=== PATIENT | female | born 1930 | race Caucasian/White ===

== ENCOUNTER 2017-02-07 16:02 | Emergency (ER) | payer MEDICARE ==
[~2017-02-07] VITALS: Ht 157.4 cm; Wt 45.4 kg
[2017-02-07 17:09] LABS: BILIRUBIN NEGATIVE (NEGATIVE); BLOOD NEGATIVE (NEGATIVE); CLARITY CLEAR (CLEAR); COLOR YELLOW (YELLOW); GLUCOSE NEGATIVE (NEGATIVE); KETONE NEGATIVE (NEGATIVE); LEUKO ESTERASE NEGATIVE (NEGATIVE); NITRITE NEGATIVE (NEGATIVE); PH 5.5 (5.0-9.0); SPECIFIC GRAVITY <= 1.005 (1.005-1.030); UROBILINOGEN 0.2 E.U./dl (0.2-1.0)
[2017-02-07 17:13] LABS: BASO # 0.1 10*3/uL (0.0-0.1); BASO % 0.7 % (0.0-1.0); EOS # 0.3 10*3/uL (0.0-0.4); EOS % 4.5 % (1.0-4.0); HEMATOCRIT 39.8 % (37.0-47.0); LYMPH # 1.4 10*3/uL (1.3-4.4); LYMPH % 20.3 % (27.0-41.0); MEAN CELL VOLUME 94.8 fl (81.0-99.0); MEAN CORPUSCULAR HGB CONC 32.7 g/dl (33.0-37.0); MEAN PLATELET VOLUME 8.9 fl (9.6-12.3); MONO # 0.4 10*3/uL (0.1-1.0); MONO % 6.2 % (3.0-9.0); NEUT # 4.8 10*3/uL (2.3-7.9); NEUT % 68.2 % (47.0-73.0); PLATELET COUNT AUTOMATED 290 10*3/uL (130-400); RED CELL DISTRI WIDTH 13.1 % (0-14.5); WHITE BLOOD COUNT 7.1 10*3/uL (4.8-10.8)
[2017-02-07 17:16] LABS: RBC 0-2 rbc/hpf (0-2); WBC 0-2 wbc/hpf (0-5)
[2017-02-07 17:17] LABS: EPITHELIAL CELLS 0-2
[2017-02-07 17:22] LABS: ACT PARTIAL THROMBO TIME 25.2 SECONDS (20.8-31.5)
[2017-02-07 17:27] LABS: ALBUMIN 3.8 gm/dl (3.1-4.5); ALKALINE PHOSPHATASE 81 U/L (45-117); BUN 17 mg/dl (7-24); CHLORIDE 106 mmol/L (98-107); CREATININE 0.89 mg/dL (0.55-1.02); LIPASE 223 U/L (73-393); MAGNESIUM 2.5 mg/dL (1.5-2.1); POTASSIUM 3.7 mmol/L (3.5-5.1); SGOT/AST 22 IU/L (3-35); SGPT/ALT 16 U/L (12-78); SODIUM 139 mmol/L (136-145); TOTAL PROTEIN 7.9 gm/dL (6.4-8.2)
[2017-02-07 17:30] LABS: TROPONIN I < 0.015 ng/ml (<0.045)
[2017-02-07] MEDS ORDERED: LEVAQUIN250 M1 PO (20:29)
== END 2017-02-07 20:35 | disposition home or self-care (01) ==
LOC: ED 16:02
PROVIDERS: Emergency Medicine
DX: R55 Syncope and collapse (principal); R30.0 Dysuria

== ENCOUNTER 2017-10-04 10:14 | Emergency (ER) | payer MEDICARE ==
[~2017-10-04] VITALS: Wt 62.6 kg
[~2017-10-04 10:14] MED LIST: LEVAQUIN250 M1 PO
[2017-10-04 10:51] LABS: BASO # 0.1 10*3/uL (0.0-0.1); BASO % 0.8 % (0.0-1.0); EOS # 0.4 10*3/uL (0.0-0.4); EOS % 4.9 % (1.0-4.0); HEMATOCRIT 40.9 % (37.0-47.0); HEMOGLOBIN 13.6 g/dl (12.0-16.0); LYMPH # 1.3 10*3/uL (1.3-4.4); LYMPH % 14.6 % (27.0-41.0); MEAN CELL VOLUME 95.8 fl (81.0-99.0); MEAN CORPUSCULAR HGB 31.9 pg (27.0-31.0); MEAN CORPUSCULAR HGB CONC 33.3 g/dl (33.0-37.0); MEAN PLATELET VOLUME 9.7 fl (9.6-12.3); MONO # 0.5 10*3/uL (0.1-1.0); MONO % 5.6 % (3.0-9.0); NEUT # 6.7 10*3/uL (2.3-7.9); NEUT % 73.9 % (47.0-73.0); PLATELET COUNT AUTOMATED 255 10*3/uL (130-400); RED BLOOD COUNT 4.27 10*6/uL (4.10-5.10); RED CELL DISTRI WIDTH 13.2 % (0-14.5)
[2017-10-04 11:05] LABS: ALBUMIN 3.9 gm/dl (3.1-4.5); ALKALINE PHOSPHATASE 90 U/L (45-117); BUN 21 mg/dl (7-24); CHLORIDE 101 mmol/L (98-107); CREATININE 1.04 mg/dL (0.55-1.02); LIPASE 176 U/L (73-393); SGOT/AST 24 IU/L (3-35); SGPT/ALT 19 U/L (12-78); SODIUM 138 mmol/L (136-145); TOTAL PROTEIN 7.8 gm/dL (6.4-8.2)
[2017-10-04 11:12] LABS: BILIRUBIN NEGATIVE (NEGATIVE); BLOOD NEGATIVE (NEGATIVE); CLARITY CLEAR (CLEAR); COLOR YELLOW (YELLOW); GLUCOSE NEGATIVE (NEGATIVE); KETONE NEGATIVE (NEGATIVE); LEUKO ESTERASE NEGATIVE (NEGATIVE); NITRITE NEGATIVE (NEGATIVE); SPECIFIC GRAVITY <= 1.005 (1.005-1.030); UROBILINOGEN 0.2 E.U./dl (0.2-1.0)
[2017-10-04 11:22] LABS: EPITHELIAL CELLS 0-2; RBC 0-2 rbc/hpf (0-2); WBC 0-2 wbc/hpf (0-5)
== END 2017-10-04 14:27 | disposition home or self-care (01) ==
LOC: ED 10:14
PROVIDERS: Nurse Practitioner Family
DX: R35.0 Frequency of micturition (principal); R10.30 Lower abdominal pain, unspecified; R11.0 Nausea

== ENCOUNTER → 2017-11-12 | Outpatient (CLI) | payer MEDICARE ==
[2017-11-12 14:18] LABS: BASO # 0.1 10*3/uL (0.0-0.1); BASO % 0.8 % (0.0-1.0); BILIRUBIN NEGATIVE (NEGATIVE); BLOOD NEGATIVE (NEGATIVE); CLARITY CLEAR (CLEAR); COLOR YELLOW (YELLOW); EOS # 0.6 10*3/uL (0.0-0.4); GLUCOSE NEGATIVE (NEGATIVE); HEMATOCRIT 40.4 % (37.0-47.0); HEMOGLOBIN 13.2 g/dl (12.0-16.0); KETONE NEGATIVE (NEGATIVE); LEUKO ESTERASE NEGATIVE (NEGATIVE); LYMPH # 1.6 10*3/uL (1.3-4.4); LYMPH % 17.7 % (27.0-41.0); MEAN CELL VOLUME 97.1 fl (81.0-99.0); MEAN CORPUSCULAR HGB 31.7 pg (27.0-31.0); MEAN CORPUSCULAR HGB CONC 32.7 g/dl (33.0-37.0); MEAN PLATELET VOLUME 9.1 fl (9.6-12.3); MONO # 0.5 10*3/uL (0.1-1.0); NEUT # 6.5 10*3/uL (2.3-7.9); NEUT % 70.1 % (47.0-73.0); NITRITE NEGATIVE (NEGATIVE); PLATELET COUNT AUTOMATED 265 10*3/uL (130-400); RED BLOOD COUNT 4.16 10*6/uL (4.10-5.10); RED CELL DISTRI WIDTH 13.1 % (0-14.5); SPECIFIC GRAVITY <= 1.005 (1.005-1.030); UROBILINOGEN 0.2 E.U./dl (0.2-1.0); WHITE BLOOD COUNT 9.2 10*3/uL (4.8-10.8)
[2017-11-12 14:25] LABS: BACTERIA TRACE; EPITHELIAL CELLS 0-2; RBC 0-2 rbc/hpf (0-2); WBC 0-2 wbc/hpf (0-5)
[2017-11-12 14:36] LABS: CREATININE 1.08 mg/dL (0.55-1.02); POTASSIUM 4.7 mmol/L (3.5-5.1); TOTAL PROTEIN 7.8 gm/dL (6.4-8.2)
== END | disposition home or self-care (01) ==
LOC: RESCLI 12:57
PROVIDERS: Internal Medicine
DX: Z00.01 Encounter for general adult medical examination with abnormal findings (principal); I12.9 Hypertensive chronic kidney disease with stage 1 through stage 4 chronic kidney disease, or unspecified chronic kidney disease; N18.1 Chronic kidney disease, stage 1; S81.801A Unspecified open wound, right lower leg, initial encounter; S80.829A Blister (nonthermal), unspecified lower leg, initial encounter; E78.5 Hyperlipidemia, unspecified; Z79.899 Other long term (current) drug therapy; X58.XXXA Exposure to other specified factors, initial encounter; Y93.89 Activity, other specified; Y92.89 Other specified places as the place of occurrence of the external cause; Y99.8 Other external cause status; E55.9 Vitamin D deficiency, unspecified

== ENCOUNTER → 2017-11-27 | Outpatient (CLI) | payer MEDICARE | END | disposition home or self-care (01) | LOC: RESCLI 01:38 | DX: I10 Essential (primary) hypertension (principal); E78.5 Hyperlipidemia, unspecified; R60.9 Edema, unspecified ==

== ENCOUNTER → 2017-12-10 | Outpatient (CLI) | payer MEDICARE | END | disposition home or self-care (01) | LOC: CARD 07:30 | DX: I70.213 Atherosclerosis of native arteries of extremities with intermittent claudication, bilateral legs (principal); I05.8 Other rheumatic mitral valve diseases; I10 Essential (primary) hypertension; Z79.899 Other long term (current) drug therapy ==

== ENCOUNTER 2018-10-04 01:55 | Inpatient (IN) | payer MEDICARE ==
[~2018-10-04] VITALS: Ht 162.5 cm; Wt 55.8 kg
[2018-10-04] VITALS (11 sets, daily range): BP systolic 88–152; BP diastolic 54–99
--- NOTE | ~2018-10-04 | EKG ---
[place], [place] ELECTROCARDIOGRAM REPORT NAME: FELI RIVAS UNIT #: [id number] ROOM: 407 DOCTOR: FIORELLA DRAFT REPORT BIRTHDATE: [birth year] [facility] Test Date: 2018-10-04 Test Time: 03:13:56 Pat Name: FELI RIVAS Department: Room: 407 Gender: F Administration Vice President: : 1930 Requested By: MARÍA ELENA DAILY Order Number: [id number] Reading MD: Clare Toussaint Measurements Intervals [place] Rate: 94 P: 63 VA: 234 QRS: 25 QRSD: 89 T: 49 QT: 373 QTc: 467 Interpretive Statements Sinus rhythm Prolonged VA interval Borderline low voltage, extremity leads Compared to ECG 03/20/2018 10:38:33 First degree AV block now present Electronically Signed On 10-04-2018 11:57:45 PDT by Clare Toussaint CM:EKGRPT:ELECTROCARDIOGRAM REPORT [id number] MARÍA ELENA MCKAY DRAFT REPORT MARÍA ELENA DAILY DO
--- NOTE | ~2018-10-04 | CON ---
[place], [place] REPORT OF CONSULTATION [id number] UN[facility] #: [id number] ROOM: 407 DOCTOR: MERCEDES, PHD ENRIQUEZ BIRTHDATE: [birth year] DOS: 10/05/2018 HISTORY OF PRESENT ILLNESS: The patient is an 87-year-old female referred by Hellen Cisneros with concerns for competency evaluation. At the present time, the patient is on the 4th floor at [facility]. She is a and lives alone. She has no children; however, her 2 nieces have been staying with her since April. SOCIAL HISTORY: She does not drink alcohol, smoke cigarettes or use illegal drugs. PAST MEDICAL HISTORY: Acute ischemic stroke, anxiety, depression, hyperlipidemia, and hypertension. MEDICATIONS: Levetiracetam, Lovenox, Ativan, Restoril, Dulcolax, morphine sulfate, [place], Zofran, Tylenol. PHYSICAL EXAMINATION: NEUROLOGIC: The patient was awake, alert and oriented to person, place and time. She can name the president and the past president. Mood was stable. Affect was appropriately wide ranging. She denied suicidal and homicidal ideation, plan, and intent. She could adequately discuss her medical condition and medications she is taking as well as pros and cons for taking them and not taking them. Speech and language were within normal limits conversationally. The patient did not appear to be confused. Process was linear and goal directed. There was no evidence of hallucinations or delusions. I spoke with one of the patient's nieces, who denied concerns for competency issues. In my opinion, the patient is competent to make informed health care decisions. DIAGNOSIS: Unspecified anxiety disorder. PLAN: In my opinion, the patient is competent to make informed health care decisions. Thank you very much for this consult. Kristin Platt, PhD CM:CONSTR:REPORT OF CONSULTATION [id number] 10/05/18 0148 interface
[2018-10-04 03:11] LABS: BASO # 0.1 10*3/uL (0.0-0.1); BASO % 0.8 % (0.0-1.0); EOS # 0.4 10*3/uL (0.0-0.4); EOS % 5.1 % (1.0-4.0); HEMATOCRIT 40.2 % (37.0-47.0); LYMPH # 1.1 10*3/uL (1.3-4.4); LYMPH % 14.4 % (27.0-41.0); MEAN CELL VOLUME 100.5 fl (81.0-99.0); MEAN CORPUSCULAR HGB 32.5 pg (27.0-31.0); MEAN CORPUSCULAR HGB CONC 32.3 g/dl (33.0-37.0); MEAN PLATELET VOLUME 9.1 fl (9.6-12.3); MONO # 0.5 10*3/uL (0.1-1.0); MONO % 6.9 % (3.0-9.0); NEUT # 5.3 10*3/uL (2.3-7.9); NEUT % 72.5 % (47.0-73.0); PLATELET COUNT AUTOMATED 221 10*3/uL (130-400); RED CELL DISTRI WIDTH 13.1 % (0-14.5); WHITE BLOOD COUNT 7.3 10*3/uL (4.8-10.8)
[2018-10-04 03:27] LABS: ALBUMIN 3.1 gm/dl (3.1-4.5); CREATININE 1.21 mg/dL (0.55-1.02); POTASSIUM 3.6 mmol/L (3.5-5.1); TOTAL PROTEIN 6.6 gm/dL (6.4-8.2); TROPONIN I 0.018 ng/ml (<0.045)
[2018-10-05] VITALS: BP 149/68
[2018-10-05 08:00] VITALS: BP 142/85
[2018-10-05 12:00] VITALS: BP 151/66
[2018-11-13] MEDS ORDERED: ASPIRIN CHEWABL81 MG PO (09:31)
[2018-11-13] MEDS ORDERED: CLOPIDOGREL75 MG PO (09:31)
[2018-11-13] MEDS ORDERED: ATORVASTATIN CA40 M1 PO (09:31)
[2018-11-13] MEDS ORDERED: ESCITALOPRAM OX10 MG PO (09:31)
[2018-11-13] MEDS ORDERED: LISINOPRIL10 M1 PO (09:31)
[2018-11-14] MEDS ORDERED: ATIVAN1 MG SL (12:39)
[2018-11-14] MEDS ORDERED: KEPPRA XR750 MG PO (12:39)
== END 2018-10-05 15:13 | disposition left against medical advice (07) | DRG 100 ==
LOC: ED 01:55 → EDHOLD 03:57 → 4E 04:11
PROVIDERS: Emergency Medicine; ADMIT Internal Medicine
DX: R56.9 Unspecified convulsions (principal); N17.0 Acute kidney failure with tubular necrosis; G93.41 Metabolic encephalopathy; E87.2 Acidosis; E44.1 Mild protein-calorie malnutrition; Z66 Do not resuscitate; Z51.5 Encounter for palliative care; E86.0 Dehydration; R00.0 Tachycardia, unspecified; Z53.21 Procedure and treatment not carried out due to patient leaving prior to being seen by health care provider; E78.5 Hyperlipidemia, unspecified; I10 Essential (primary) hypertension; F32.9 Major depressive disorder, single episode, unspecified; F41.9 Anxiety disorder, unspecified; Z86.73 Personal history of transient ischemic attack (TIA), and cerebral infarction without residual deficits; Z68.21 Body mass index [BMI] 21.0-21.9, adult

== ENCOUNTER 2019-01-31 12:36 | Inpatient (IN) | payer MEDICARE ==
[~2019-01-31] VITALS: Ht 160 cm; Wt 53.6 kg
[~2019-01-31 12:36] MED LIST changes: +ASPIRIN CHEWABL81 MG PO; +ATIVAN1 MG SL; +ATORVASTATIN CA40 M1 PO; +CLOPIDOGREL75 MG PO; +ESCITALOPRAM OX10 MG PO; +KEPPRA XR750 MG PO; +LISINOPRIL10 M1 PO
[2019-01-31 12:37] VITALS: BP 132/84
[2019-01-31 13:25] LABS: BASO # 0.1 10*3/uL (0.0-0.1); BASO % 0.6 % (0.0-1.0); EOS # 0.1 10*3/uL (0.0-0.4); EOS % 0.9 % (1.0-4.0); HEMATOCRIT 42.8 % (37.0-47.0); HEMOGLOBIN 14.3 g/dl (12.0-16.0); LYMPH # 0.7 10*3/uL (1.3-4.4); MEAN CELL VOLUME 96.4 fl (81.0-99.0); MEAN CORPUSCULAR HGB 32.2 pg (27.0-31.0); MEAN CORPUSCULAR HGB CONC 33.4 g/dl (33.0-37.0); MEAN PLATELET VOLUME 9.7 fl (9.6-12.3); MONO # 1.1 10*3/uL (0.1-1.0); MONO % 9.1 % (3.0-9.0); NEUT # 10.3 10*3/uL (2.3-7.9); NEUT % 83.1 % (47.0-73.0); PLATELET COUNT AUTOMATED 246 10*3/uL (130-400); RED BLOOD COUNT 4.44 10*6/uL (4.10-5.10); RED CELL DISTRI WIDTH 12.9 % (0-14.5); WHITE BLOOD COUNT 12.4 10*3/uL (4.8-10.8)
[2019-01-31 13:32] LABS: ACT PARTIAL THROMBO TIME 24.8 SECONDS (20.0-32.1)
[2019-01-31 13:34] LABS: BUN 17 mg/dl (7-24); CHLORIDE 102 mmol/L (98-107); CREATININE 1.04 mg/dL (0.55-1.02); SODIUM 137 mmol/L (136-145)
[2019-01-31 13:37] LABS: CPK 940 U/L (26-192)
--- NOTE | 2019-01-31 14:17 | NUR ---
PT ASSISTED TO BEDSIDE COMMODE BUT WAS UNABLE TO PROVIDE URINE SAMPLE AT THIS TIME BACK IN BED CALL LIGHT IN REACH VOICES NO COMPLAINTS
--- NOTE | 2019-01-31 14:26 | NUR ---
pt does not want to be admitted she is alert and oriented dr grimaldo is aware call light in reach neighbor in room at bedside
--- NOTE | 2019-01-31 14:50 | NUR ---
PT HAS AGREED TO BE ADMITTED
[2019-01-31 15:33] VITALS: BP 128/80
[2019-01-31 16:00] VITALS: BP 160/79
--- NOTE | 2019-01-31 16:00 | NUR ---
PT UNSURE OF MEDICATIONS, STATES HER NIECES MANAGE HER MEDICATIONS, STATES SHE SHOULD BE IN LATER TODAY.
--- NOTE | 2019-01-31 16:00 | NUR ---
Time: 1599 A 88 year old FEMALE admitted to 4E under services of EMILY GARCIA DO. Pt. arrived via ambulance from ER. Chief complaint: S/P MULTIPLE FALLS, LACERATION TO FOREHEAD. KIN MANLEY
--- NOTE | 2019-01-31 19:50 | NUR ---
PATIENT ASSISTED INTO BATHROOM AND BACK INTO BED. PT VERY WEAK AND UNABLE TO SUPPORT OWN WEIGHT AT THIS TIME. MAX ASSIST REQUIRED. BEDSIDE COMMODE TO BE PUT AT BEDSIDE ASSIST X3 WAS REQUIRED TO GET PT BACK INTO BED. PT SET UP TO EAT DINNER. NO S/S OF DISTRESS NOTED AT THIS TIME. BED LEFT LOCKED IN LOW POSITION, BED ALARM INTACT, CALL LIGHT IN REACH.
[2019-01-31 20:00] VITALS: BP 145/73
--- NOTE | 2019-01-31 21:59 | NUR ---
SPOKE TO REGARDING PATIENT'S HOME KEPPRA. PT TAKES 750 MG KEPPRA XR DAILY. EXTENDED RELEASE KEPPRA UNAVAILABLE FROM HOUSE PHARMACY. WILL TRY TO GET PATIENT'S HOME MEDICATION BROUGHT IN BY FAMILY IF POSSIBLE. PER PHARMACIST, ORDER KEPPRA ORAL LIQUID 375MG BID IN PLACE OF XR FOR TIME BEING.
[2019-01-31 22:15] LABS: BILIRUBIN NEGATIVE (NEGATIVE); BLOOD NEGATIVE (NEGATIVE); CLARITY SL CLOUDY (CLEAR); COLOR YELLOW (YELLOW); GLUCOSE NEGATIVE (NEGATIVE); KETONE TRACE (NEGATIVE); LEUKO ESTERASE NEGATIVE (NEGATIVE); NITRITE NEGATIVE (NEGATIVE); SPECIFIC GRAVITY 1.015 (1.005-1.030); UROBILINOGEN 0.2 E.U./dl (0.2-1.0)
[2019-01-31 22:21] LABS: BACTERIA TRACE; MUCOUS TRACE; RBC 0-2 rbc/hpf (0-2)
[2019-02-01] VITALS: BP 156/78
--- NOTE | 2019-02-01 07:04 | NUR ---
FELI RIVAS [id number] Please refer to the physician's history and physical for past medical history, comorbid conditions, and allergies. Diagnosis: FOREHEAD LACERATION Ye Score: 13,MODERATE RISK WOUND DESCRIPTIONS: Wound Number: 1 Location of the wound: left forehead Type of wound: lacertation Thickness: Partial Size: 0.1cm x 2.2cm x <0.1cm Tunneling: none Undermining: none Sinus Tract: none Presence of Exudate: none Amount: None Color: Red Odor: None Periwound Skin Appearance: Normal Wound edges: approximated with 2 sutures Pain (associated with wound): none at time of assessment How does patient state this happened? pt unable to state how this happened Wound Number: 2 Location of the wound: left elbow Type of wound: abrasion Thickness: Partial Size: 1.5cm x 2.5cm x 0.1cm Tunneling: none Undermining: none Sinus Tract: none Presence of Exudate: Serous Amount: Light Color: Red, yellow Odor: None Periwound Skin Appearance: Normal Wound edges: approximated Pain (associated with wound): none at time of assessment How does patient state this happened? pt unable to state how this happened Wound Number: 3 Location of the wound: left knee Type of wound: abrasion Thickness: Partial Size: 3.0cm x 2.5cm x 0.1cm Tunneling: none Undermining: none Sinus Tract: none Presence of Exudate: none Amount: Light Color: Red, yellow Odor: None Periwound Skin Appearance: Normal Wound edges: approximated Pain (associated with wound): none at time of assessment How does patient state this happened? pt unable to state how this happened Wound Number: 4 Location of the wound: right knee Type of wound: abrasion Thickness: Partial Size: 2.3cm x 2.1cm x <0.1cm Tunneling: none Undermining: none Sinus Tract: none Presence of Exudate: Serous Amount: Light Color: Red, yellow Odor: None Periwound Skin Appearance: Normal Wound edges: approximated Pain (associated with wound): none at time of assessment How does patient state this happened? pt unable to state how this happened Wound Number: 5 Location of the wound: left middle toe Thickness: Partial Size: 0.6cm x 0.4cm x 0.1cm Tunneling: none Undermining: none Sinus Tract: none Presence of Exudate: Serous Amount: Light Color: Red, yellow Odor: None Periwound Skin Appearance: Normal Wound edges: approximated Pain (associated with wound): none at time of assessment How does patient state this happened? pt unable to state how this happened Wound Number: 6 Entire buttocks is red and blanchable at time of assessment. No open areas noted at time of assessment. No draiange at time of assessment. Wound Number: 7 Location of the wound: left knee cap Type of wound: abrasion Thickness: Partial Size: 2.0cm x 2.0cm x <0.1cm Tunneling: none Undermining: none Sinus Tract: none Presence of Exudate: Serous Amount: Light Color: Red, yellow Odor: None Periwound Skin Appearance: Normal Wound edges: approximated Pain (associated with wound): none at time assessment How does patient state this happened? pt unable to state how this happened Wound Number: 8 Location of the wound: left lateral knee lower Type of wound: abrasion Thickness: Partial Size: 0.6cm x 0.6cm x 0.1cm Tunneling: none Undermining: none Sinus Tract: none Presence of Exudate: Serous Amount: Light Color: Red Odor: None Periwound Skin Appearance: Normal Wound edges: approximated Pain (associated with wound): none at time of assessment How does patient state this happened? pt unable to state how this happened Wound Number: 9 Location of the wound: left 5th toe Type of wound: traumatic Thickness: Partial Size: 0.3cm x 0.3cm x 0.1cm Tunneling: none Undermining: none Sinus Tract: none Presence of Exudate: Serous Amount: Light Color: Red Odor: None Periwound Skin Appearance: Normal Wound edges: approximated Pain (associated with wound): none at time of assessment How does patient state this happened? pt unable to state how this happened Surface the patient is resting on: Isoflex SKIN PREVENTION RECOMMENDATION: 1. Pressure redistribution support surface as appropriate 2. Elevate heels 3. Remove boots/TEDS every shift and reapply 4. Head of bed 30 degrees as tolerated 5. Assess nutrition and hydration 6. Manage moisture 7. Avoid the use of containment devices while in bed 8. Use absorptive products on surfaces limit layers of linens on bed 9. Turn and reposition every 1-2 hours in bed and every 1 hour in chair as tolerated 10. Weight shifts every 15 minutes while up in chair 11. Offloading with pillows or device to keep heels elevated off bed 12. Monitor skin at least every shift 13. Inspect under medical devices twice a day WOUND TREATMENT RECOMMENDATIONS: Wheelchair cushion when oob. Heel raiser pro boots to bilateral feet while in bed. Remove suture from forehead is 7-10 days. Partial thickness guidelines: Cleanse left elbow, left knee, left knee lateral proximal and distal, and right knee with nss and apply sureprep around the wound therahoney to wound bed and cover with optifoam gentle. Cleanse left middle toe and left 5th toe with nss and apply bactroban and cover with bandaid daily and prn for soiling. Cleanse entire buttocks with soap and water and apply hydraguard every shift and prn for soiling.
--- NOTE | 2019-02-01 07:20 | NUR ---
ARRIVED ON SHIFT. INTRODUCED TO PATIENT, BEDSIDE REPORT RECEIVED, NO NEEDS VOICED AT THIS TIME, WHITE BOARD UPDATED.
[2019-02-01 07:40] LABS: BASO # 0.1 10*3/uL (0.0-0.1); BASO % 0.9 % (0.0-1.0); EOS # 0.4 10*3/uL (0.0-0.4); EOS % 4.7 % (1.0-4.0); HEMATOCRIT 40.9 % (37.0-47.0); HEMOGLOBIN 13.4 g/dl (12.0-16.0); LYMPH # 1.2 10*3/uL (1.3-4.4); LYMPH % 13.2 % (27.0-41.0); MEAN CELL VOLUME 97.6 fl (81.0-99.0); MEAN CORPUSCULAR HGB CONC 32.8 g/dl (33.0-37.0); MEAN PLATELET VOLUME 9.4 fl (9.6-12.3); MONO # 0.7 10*3/uL (0.1-1.0); MONO % 7.7 % (3.0-9.0); NEUT # 6.5 10*3/uL (2.3-7.9); NEUT % 73.3 % (47.0-73.0); PLATELET COUNT AUTOMATED 209 10*3/uL (130-400); RED BLOOD COUNT 4.19 10*6/uL (4.10-5.10); RED CELL DISTRI WIDTH 13.1 % (0-14.5); WHITE BLOOD COUNT 8.9 10*3/uL (4.8-10.8)
[2019-02-01 08:00] VITALS: BP 153/75
[2019-02-01 08:05] LABS: ALBUMIN 3.3 gm/dl (3.1-4.5); BUN 15 mg/dl (7-24); CHLORIDE 109 mmol/L (98-107); CPK 719 U/L (26-192); POTASSIUM 3.8 mmol/L (3.5-5.1); SODIUM 141 mmol/L (136-145)
[2019-02-01 08:16] LABS: ALKALINE PHOSPHATASE 75 U/L (45-117); CREATININE 0.83 mg/dL (0.55-1.02); PHOSPHOROUS 2.5 mg/dL (2.5-4.9); SGOT/AST 39 IU/L (3-35); SGPT/ALT 21 U/L (12-78); TOTAL PROTEIN 6.6 gm/dL (6.4-8.2)
--- NOTE | 2019-02-01 08:57 | NUR ---
Dr. Shah notified of wound care recommendations.
[2019-02-01 09:20] LABS: VITAMIN D, 25-HYDROXY 45.3 ng/mL (30-100)
--- NOTE | 2019-02-01 09:23 | NUR ---
PHYSICAL THERAPY Nursing screen received and chart reviewed. Physical therapy order received. Thank you. Janet Graham,PT,DPT
--- NOTE | 2019-02-01 10:22 | NUR ---
CALL PLACED TO PHARMACY. ADVISED THAT PATIENT GETS ASA OTC, THEY ONLY TWO MEDICATIONS FILLED RECENTLY IS TOMEKA, NOTIFIED .
--- NOTE | 2019-02-01 11:25 | NUR ---
Occupational therapy orders received and OT evaluation and POC completed in full on floor four. Patient precautions include fall risk, ww use, IV lines, blind in L eye, impulsivity, and weakness. Per OT eval and POC, OT recommends SNF. If refused, patient would benefit from home health SN, OT, PT, and / supervision. Patient would benefit from OT treatment to maximize independence and safety with ADLs and functional mobility/transfers. Thank you for the referral. Tracy Cruz, OTR/L
--- NOTE | 2019-02-01 11:25 | NUR ---
Occupational therapy orders received and OT evaluation and POC completed in full on floor four. Patient precautions include fall risk, ww use, IV lines, blind in L eye, impulsivity, and generalized weakness with a history of falls. Per OT eval and POC, OT recommends SNF. If refused, home with home health SN, OT, and PT with 24/7 supervision. Patient would benefit from OT treatment to maximize independence in ADLs, functional mobility/transfers, and safety. Thank you for the referral. Tracy Cruz, OTR/L
--- NOTE | 2019-02-01 11:50 | NUR ---
PHYSICAL THERAPY Physical therapy evaluation completed,4E. Full evaluation with full details to follow. Moderate complexity evaluation per chart review and evaluation, [address]. PT to improve gait stability, balance and general safety per POC. Therapy recommending SNF. Thank you. Ivet Coffey, PT, DPT
[2019-02-01 12:30] VITALS: BP 168/86
--- NOTE | 2019-02-01 12:40 | NUR ---
AWARE OF MANUAL BP 168/86.
--- NOTE | 2019-02-01 14:32 | NUR ---
Received snf order, contacted [facility] [place] and faxed referral. [place] and 3 night stay. Waiting on review/acceptance.
[2019-02-01 16:00] VITALS: BP 179/73
--- NOTE | 2019-02-01 16:00 | NUR ---
PT IS CONFUSED AND UNABLE TO UNDERTAND QUESTIONS. ATTEMPTED TO CALL WM WHO IS LISTED NOK. VOICEMAIL DID NOT LIST A NAME SO PT NAME NOT GIVEN BUT ASK HER ABOUT DISCHARG PLANS FOR PT. WILL CONTINUE TO FOLLOW.
--- NOTE | 2019-02-01 16:18 | NUR ---
Patient bp remains elvated BP 170/86, call placed to DR. KENDRICK TO ADVISE OF ELEVATED BP
--- NOTE | 2019-02-01 18:00 | NUR ---
DISCHARGED RECEIVED, CALL PLACED TO ROUTE SALESMAN HIREN, VOICED CONCERNS OVER PATIENT BEING DISCHARGED I WAS UNABLE TO CONTACT ANT FAMILY OR DIRECTOR OF PUBLIC SAFETY, PATIENT IS NON-ABULATORY, BLIND, AND I WAS CONCERNED ABOUT SAFETY SHE CAME IN DUE TO FALL AND BEING ON FLOOR, WITH AMBULANCE CALLED X 2 SHE REFUSED TO COME TO ER AT [facility]. PLACED TO DR. AGUILAR, SPOKE WITH HOSPITALIST DR. HEREDIA, ADVISED THAT PER DR. AGUILAR NOTE THAT SHE WAS TO D/C TODAY WITH HOMEHEALTH TO FOLLOW UP TOMORROW. PATIENT REFUSING PHOTOS OF WOUNDS, JUST WANTS TO GET OUT OF HERE.
--- NOTE | 2019-02-01 18:03 | NUR ---
ATTEMPTED TO CALL PATIENTS NOK, NO ANSWER LEFT VOICEMAIL
--- NOTE | 2019-02-01 19:35 | NUR ---
EMS HERE. PATIENT IS UNABLE TO AMBULATE DUE TO EXTREME WEAKNESS. PT REQUIRES 1-2 ASSIST TO EVEN PIVOT TO BEDSIDE COMMODE. PATIENT ANSWERS ALL QUESTIONS APPROPRIATELY, BUT BIZARRE/REPETITIVE TALK NOTED AT TIMES. PT APPEARS TO BE FORGETFUL. EMS CONCERNED THAT PATIENT LIVES ALONE AND DOES NOT HAVE A COMMERCIAL DRONE PILOT TO BE WITH HER AT HOME. SOCIAL SERVICE WAS CONSULTED DURING STAY FOR POSSIBLE SNF PLACEMENT. PT HAD BEEN REFUSING PLACEMENT ALL DAY. THIS RN AND EMS TALKED WITH PATIENT AND SHE IS AGREEING TO GO TO [place] OR [place]. SPOKE TO REGARDING SITUATION/DISCHARGE/PLAN OF CARE. DISCHARGE ORDERED TO BE CANCELLED. PATIENT IS TO STAY OVERNIGHT. SOCIAL SERVICE TO BE CONSULTED TO WORK ON SNF PLACEMENT.
[2019-02-01 20:00] VITALS: BP 170/77
--- NOTE | 2019-02-01 21:52 | NUR ---
ATTEMPTED TO CALL [facility] L[facility], NEXT OF KIN, TO UPDATE ON PT STAYING HERE AND GOING TO SNF. WENT DIRECTLY TO VOICEMAIL. WILL ATTEMPT TO CALL IN AM.
[2019-02-01 22:20] VITALS: BP 162/78
--- NOTE | 2019-02-01 22:29 | NUR ---
AWARE OF BP 162/78 MANUALLY. DISCUSSED DOSE OF IV HYDRALAZINE THAT WAS NOT GIVEN EARLIER IN THE AFTERNOON. INSTRUCTED TO D/C THIS ORDER AND WILL PUT IN ORDERS NEEDED.
--- NOTE | 2019-02-01 22:39 | NUR ---
IV started left forearm with #20 angiocath after 1 attempt. The IV site was prepped with Chloraprep. Heparin lock attached. Sterile dressing applied. Patient tolerated precedure well. Procedure performed according to [facility] policy & procedure. KADE GILES
--- NOTE | 2019-02-01 22:57 | NUR ---
5 MG IV HYDRALAZINE ADMINISTERED SLOWLY PER ONE TIME ORDER FOR ELEVATED BP. WILL MONITOR EFFECTIVENESS. CALL LIGHT LEFT IN REACH. BED ALARM INTACT. SIDE RAILS UP X3.
[2019-02-02] VITALS: BP 154/63
[2019-02-02 01:00] VITALS: BP 121/72
--- NOTE | 2019-02-02 01:15 | NUR ---
EARLIER MEDICATION EFFECTIVE. BP NOW 121/72. WILL MONITOR. CALL LIGHT IN REACH. BED ALARM INTACT.
--- NOTE | 2019-02-02 03:43 | NUR ---
Upon discharge recommend patient to follow up for wound care in outpatient setting continue current wound care orders at discharging facility.
--- NOTE | 2019-02-02 07:50 | NUR ---
Dr. Shah notified of wound care recommendations.
[2019-02-02 08:00] VITALS: BP 153/72
--- NOTE | 2019-02-02 08:33 | NUR ---
PT RESTING IN BED NO DISTRESS NOTED. WILL MONITOR
--- NOTE | 2019-02-02 08:37 | NUR ---
Patients zuly Gonzalez called and we discussed discharge planning. She stated she and her sister live about 200 miles away in [place] [facility]. She and her sister have been taking turns staying with patient about every 4 days to care for her. She stated the patient owns her own home but has not been updated since the 50's. They are not allowed to shower, flush the toilet or use a fan. 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 When she is unable to have her chewing tobacco she becomes very aggitated and starts yelling out, this is another reason she doesn't want to go to a long term because they will take it away from her. Lisa was very upset and stating their family is having their own issues and they are not able to continue driving and staying here with the patient. She states patient knows she will need to eventually give up her house and live in a long term but is very stubborn; Lisa would like patient to go to a facililty for the 20 days for rehab to see if she can be evaluated and get stronger. she has had [facility] with physical therapy in the past. Her therapist was "Trav" and she really liked him. Lisa states she responds better to men.
--- NOTE | 2019-02-02 10:43 | NUR ---
OT NOTE Pt was seen this A.M. 1:1 for 25 minute OT session. Upon arrival pt was supine in bed. Pt identified by name and and had no complaints at this time. Pt transferred supine to sit EOB with modA X 2. Pt completed multiple sit to stand transfers from bed level with Kasandra X 2 and use of w/w for UE support. Challenged pt's static standing tolerance needed for increased I in self care tasks and functional transfers, pt was able to tolerate aprox 1-2 minutes at a time before sitting due to fatigue. While sitting EOB pt completed BUE towel exercises over all planes of motion for 1 X 10 to increase UE strength needed for increased I in self care tasks and functional transfers. Pt then transferred back into bed sit to supine with modA. There she was left with call light in hand, tray table in place, and bed alarm activated for safety. Continue with rec D/C plan to SNF. SHIRA Vargas
--- NOTE | 2019-02-02 11:46 | NUR ---
PHYSICAL THERAPY Patient presented to therapy in supine in bed with head of bed elevated and bed alarm activated. Patient was identified by name and . Patient gives informed consent for treatment. Patient transferred supine to sitting at EOB with MOD A X 2. Patient sat on EOB with SBA. Patient transferred sit to stand from EOB with MIN A X 2 with verbal cues for pushing off of the bed with hands. Patient ambulated 24' x 1 with Wh Walker and CGA X 2 with verbal cues for upright posture, pushing down on walker with hands and locking knees into extension to prevent knee buckle. Patient performed 5 Xs sit to stands from EOB in 30 seconds with CGA. Patient transferred back to supine in bed with MIN A X 2. Patient moved up to head of bed with MAX A X 2. Patient was left in supine in bed with head of bed elevated, call light within reach, and bed alarm activated. Patient was 1:1 with this ENVIRONMENTAL SERVICES TECHNICIAN for 20 minutes total. NAVYA VENTURA ENVIRONMENTAL SERVICES TECHNICIAN
[2019-02-02 12:00] VITALS: BP 150/68
--- NOTE | 2019-02-02 12:30 | NUR ---
LESVIA received call from [facility] she asked for the patients height/weight/code status/allergies.-LESVIA Norris
--- NOTE | 2019-02-02 12:41 | NUR ---
Patient referred to [facility] for short term rehab. Requires 3 night stay. [facility] is working on [place] [facility], waiting for clearance.
--- NOTE | 2019-02-02 13:35 | NUR ---
EDWIGE CALLED THIS AM AND SPOKE WITH AGUS GREENE GLASS BEAD MAKER. PT HAS BEEN REFERRED TO [facility]. WILL REQUIRE 3 NIGHT STAY AND ACCEPTANCE PRIOR TO GOING. WILL CONTINUE TO FOLLOW.
--- NOTE | 2019-02-02 15:14 | NUR ---
PHYSICAL THERAPY CO-SIGN I approve of the Physical Therapy notes written above. SHAWN OCASIO PT, DPT
[2019-02-02 16:00] VITALS: BP 153/65
[2019-02-02 20:00] VITALS: BP 162/82
[2019-02-03] VITALS: BP 140/67
--- NOTE | 2019-02-03 05:25 | NUR ---
WOUND DRESSINGS CHANGED AT THIS TIME PER ORDER. PT TOLERATED WELL. WILL MONITOR. CALL LIGHT IN REACH. BED ALARM INTACT.
[2019-02-03 08:00] VITALS: BP 124/65
--- NOTE | 2019-02-03 08:15 | NUR ---
Patient accepted to [facility]; [place] [facility] has cleared. Patient is ok to go if medically stable for discharge.
--- NOTE | 2019-02-03 09:15 | NUR ---
PHYSICAL THERAPY Patient seen this am 1:1 for therapy visit and was sitting up in bedside chair upon therapist arrival. Patient identified by name / and was very pleasant this morning, transfering sit to stand MOD A x 1. Patient needed v/c for proper hand placement and ambulated with use of wh walker, MIN A, 40'x 1, demonstrating unsteady gait pattern secondary to increased gait velocity. Patient was able to correct gait speed with improved safety awareness / walker navigation following verbal instruction and returned to bedside chair. Patient remained in chair with call light, tray table, telephone and body alarm for safety. Will continue per POC as tolerated, total treatment time 14 minutes. Mark Ventura, BLANKET BINDER
--- NOTE | 2019-02-03 09:24 | NUR ---
OT NOTE Pt was seen this A.M. 1:1 for 20 minute OT session. Upon arrival pt was sitting upright in the recliner. Pt identified by name and and had no complaints at this time. While seated pt completed BUE towel exercises over all planes of motion for 1 X 10 with emphasis on triceps for increased I in functional transfers. Multiple sit to stand transfers then completed from chair level with modA and use of w/w for UE support. Pt was educated on proper hand placement for improved technique and increased I. Upon inital rise pt presented with retrograde posture that required Kasandra and verbal instructions to correct. Pt then completed functional mobility to the bathroom and back with Kasandra and use of w/w. Pt required verbal prompts for improving walker safety due to staying unsafe distance from the walker. Pt was left sitting upright in the recliner with call light in hand, tray table in place, and body alarm activated for safety. Continue with rec D/C plan to SNF. RAHUL Vargas/Janice
[2019-02-03 12:00] VITALS: BP 132/61
--- NOTE | 2019-02-03 14:11 | NUR ---
PT REFUSED TO HAVE WOUND DRESSINGS REMOVED FOR DC WOUND PICS
--- NOTE | 2019-02-03 14:15 | NUR ---
REPORT CALLED TO CJ STRATTON
--- NOTE | 2019-02-03 14:15 | NUR ---
Discharge instructions reviewed with patient/family. Patient receptive and verbalizes understanding. Follow-up care arranged. Written instructions given to patient/family. EMILY LUIS
--- NOTE | 2019-02-04 08:02 | NUR ---
OCCUPATIONAL THERAPY CO-SIGN I approve of the Occupational Therapy notes written above. CLARITA RODRÍGUEZ OTR/Janice
--- NOTE | 2019-02-04 08:53 | NUR ---
PHYSICAL THERAPY CO-SIGN I approve of the Physical Therapy notes written above. QUINTEN ELISE, PT, DPT
== END 2019-02-03 14:15 | disposition other institution (70) | DRG 558 ==
LOC: ED 12:36 → 4E 14:35 → EDHOLD 14:35 → 4E 15:48
PROVIDERS: Emergency Medicine; Internal Medicine; ADMIT Family Medicine
PROC: 0HQ0XZZ Repair Scalp Skin, External Approach (ICD-10-PCS; principal; 2019-01-31)
DX: M62.82 Rhabdomyolysis (principal); S01.81XA Laceration without foreign body of other part of head, initial encounter; R29.6 Repeated falls; D72.829 Elevated white blood cell count, unspecified; R73.9 Hyperglycemia, unspecified; I10 Essential (primary) hypertension; E78.5 Hyperlipidemia, unspecified; R56.9 Unspecified convulsions; F32.9 Major depressive disorder, single episode, unspecified; F41.9 Anxiety disorder, unspecified; G31.9 Degenerative disease of nervous system, unspecified; M47.892 Other spondylosis, cervical region; W18.30XA Fall on same level, unspecified, initial encounter; Y93.89 Activity, other specified; Y92.098 Other place in other non-institutional residence as the place of occurrence of the external cause; Y99.8 Other external cause status; Z86.73 Personal history of transient ischemic attack (TIA), and cerebral infarction without residual deficits; Z79.82 Long term (current) use of aspirin; Z79.899 Other long term (current) drug therapy; Z79.02 Long term (current) use of antithrombotics/antiplatelets